=== PATIENT | male | born 1990 | race American Indian/Alaskan Native ===

== ENCOUNTER 2019-07-11 16:31 | Emergency (ER) | payer SELFPAY ==
[2019-07-11 17:11] LABS: Basophils % (Auto) 0.2 % (0.0-1.8); Eosinophils % (Auto) 0.1 % (0.0-4.3); Hematocrit 45.7 % (35.5-45.6); Hemoglobin 15.2 gm/dl (11.8-15.2); Lymphocytes # (Auto) 1.3 K/mm3 (1.2-5.4); Lymphocytes % (Auto) 16.4 % (13.4-35.0); Mean Corpuscular HGB Conc 33 % (32-34); Mean Corpuscular Volume 98 fl (84-94); Monocytes # (Auto) 0.8 K/mm3 (0.0-0.8); Monocytes % (Auto) 10.2 % (0.0-7.3); Platelet Count 224 K/mm3 (140-440); Red Blood Count 4.65 M/mm3 (3.65-5.03)
[2019-07-11 17:19] LABS: BUN/Creatinine Ratio 11; Blood Urea Nitrogen 13 mg/dL (9-20); Hemolysis Index 16
--- NOTE | 2019-07-11 17:53 | Cat Scan Report ---
CT head/brain wo con INDICATION: head injury from seizure. TECHNIQUE: Routine CT head without contrast. All CT scans at this location are performed using CT dose reduction for ALARA by means of automated exposure control. COMPARISON: None. FINDINGS: BRAIN / INTRACRANIAL CONTENTS: No acute hemorrhage, brain edema, mass effect, or hydrocephalus. Comfort l hampton-white differentiation. No chronic infarct or focal atrophy. Normal brain volume and ventricula r/sulcal size for age. CALVARIUM/SKULL BASE/CRANIOCERVICAL JUNCTION: No evidence of fracture. ORBITS: No significant abnormality of visualized orbits. SINUSES / MASTOIDS: No significant abnormality of visualized sinuses and mastoid air cells. ADDITIONAL FINDINGS: None. IMPRESSION: 1. No acute post-traumatic intracranial abnormality. Signer Name: Kirby Quick MD Signed: 07/11/2019 5:48 PM Workstation Name: [id number]
[2019-07-11] MEDS ORDERED: DILANTIN 1,000 MG in NACL 0.9% 250ML 250 ML IV ONE (17:57)
[2019-07-11] MEDS ORDERED: BOOSTRIX IM ONE (18:00)
--- NOTE | 2019-07-11 18:44 | Emergency Department Report ---
ED Seizure HPI - General Chief Complaint: Seizure Stated Complaint: CONVULSIONS Time Seen by Provider: 07/11/19 16:43 Source: patient Mode of arrival: Ambulatory Limitations: No Limitations - History of Present Illness Initial Comments: Mr. Olivas this 28-year-old -Turkmen male with a history of seizures , seizures easily controlled with Dilantin by mouth 3 times a day, patient states she's been out of medication for the last month. States he had a seizure today remembers event October seizure striking his head on the floor causing a small laceration of left eyebro. , Family member called EMS who brought patient to ED for evaluation and treatment. Patient denies or at this time complains of 4/10 headache, denies neck pain denies other complaints, denies substance. States Seizure was witnessed by family member. There is a small laceration left eyebrow and small hematoma. Complaint: seizure Onset/Timin -: hour(s) Duration of Episode: 30 -: second(s) Witnessed:: Yes Trauma: Yes (left eyebrow laceration ) Seizure History: known seizure disorder Place: home Possible Precipitating Event: none Associated Symptoms: denies other symptoms Treatments Prior to Arrival: none - Related Data Previous Rx's Medication Instructions Recorded Last Taken Type Acetaminophen [Tylenol] 650 mg PO Q6H PRN #30 capsule 07/11/19 Unknown Rx Phenytoin [Dilantin] 100 mg PO Q8HR #90 capsule 07/11/19 Unknown Rx Allergies Allergy/AdvReac Type Severity Reaction Status Date / Time No Known Allergies Allergy Verified 07/11/19 16:53 ED Review of Systems ROS: Stated complaint: CONVULSIONS Other details as noted in HPI Constitutional: denies: chills, fever Eyes: denies: eye pain, eye discharge, vision change ENT: denies: ear pain, throat pain Respiratory: denies: cough, shortness of breath, wheezing Cardiovascular: denies: chest pain, palpitations Endocrine: no symptoms reported Gastrointestinal: denies: abdominal pain, nausea, diarrhea Genitourinary: denies: urgency, dysuria Musculoskeletal: denies: back pain, joint swelling, arthralgia Skin: other (left eyebrow laceration ). denies: rash, lesions Neurological: headache. denies: numbness, paresthesias, confusion Psychiatric: denies: anxiety, depression Hematological/Lymphatic: denies: easy bleeding, easy bruising ED Past Medical Hx - Past Medical History Previous Medical History?: Yes Hx Seizures: Yes - Surgical History Past Surgical History?: No - Social History Smoking Status: Never Smoker Substance Use Type: None - Medications Home Medications: Home Medications Medication Instructions Recorded Confirmed Last Taken Type Acetaminophen [Tylenol] 650 mg PO Q6H PRN #30 capsule 07/11/19 Unknown Rx Phenytoin [Dilantin] 100 mg PO Q8HR #90 capsule 07/11/19 Unknown Rx ED Physical Exam - General Limitations: No Limitations General appearance: alert, in no apparent distress - Head Head exam: Present: normocephalic, normal inspection - Expanded Head Exam Expanded Head exam: Present: laceration (left eyebrow), hematoma. Absent: racoon eyes, evans's sign, general tenderness, tenderness of temporal artery, CSF rhinorrhea, CSF otorrhea - Eye Eye exam: Present: normal appearance, PERRL, EOMI, periorbital swelling, periorbital tenderness. Absent: nystagmus Pupils: Present: normal accommodation - ENT ENT exam: Present: mucous membranes moist - Neck Neck exam: Present: normal inspection, full ROM. Absent: tenderness, meningismus, lymphadenopathy, thyromegaly - Expanded Neck Exam Expanded Neck exam: Absent: tenderness, midline deformity, anterior neck swelling, thyroid mass, carotid bruit, tracheal deviation - Respiratory Respiratory exam: Present: normal lung sounds bilaterally. Absent: respiratory distress, wheezes, stridor, chest wall tenderness - Cardiovascular Cardiovascular Exam: Present: regular rate, normal rhythm, normal heart sounds. Absent: systolic murmur, diastolic murmur, rubs, gallop - GI/Abdominal GI/Abdominal exam: Present: soft, normal bowel sounds. Absent: distended, tenderness, bruit, hernia - Rectal Rectal exam: Present: deferred - Extremities Exam Extremities exam: Present: normal inspection, full ROM, normal capillary refill. Absent: tenderness - Back Exam Back exam: Present: normal inspection, full ROM. Absent: tenderness, vertebral tenderness, rash noted - Neurological Exam Neurological exam: Present: alert, oriented X3, CN II-XII intact, normal gait, reflexes normal. Absent: motor sensory deficit - Expanded Neurological Exam Expanded Neurological exam: Absent: ataxia Patient oriented to: Present: person, place, time Speech: Present: fluid speech Cranial nerves: EOM's Intact: Normal, Gag Reflex: Normal, Tongue Deviation: No rmal, Nystagmus: Normal, Facial Sensation: Normal Upper motor neuron: Ace Neglect: Normal, Pronator Drift: Normal Motor strength exam: RUE: 5, LUE: 5, RLE: 5, LLE: 5 Best Eye Response (Qi): (4) open spontaneously Best Motor Response (Spade): (6) obeys commands Best Verbal Response (Spade): (5) oriented Qi Total: 15 - Psychiatric Psychiatric exam: Present: normal affect, normal mood - Skin Skin exam: Present: warm, dry, intact, normal color. Absent: rash ED Course Vital Signs 07/11/19 16:54 Temperature 98.3 F Pulse Rate 92 H Respiratory 16 Rate Blood Pressure 122/77 O2 Sat by Pulse 96 Oximetry - Laceration /Wound Repair Left Face Wound Location: face (left eyebrow) Wound Length (cm): 1 (less than 1 cm ) Wound's Depth, Shape: superficial Wound Explored: clean Irrigated w/ Saline (ccs): 10 Betadine Prep?: Yes Wound Debrided: none required Wound Repaired With: Dermabond Progress: left eyebrow laceration superfical less than 1 cm, wound cleaned with betadine solution, irrigated with 10 sterile saline, closed with dermabond, all bleeding controlled pt tolerated procedure with minimal distress, given wound care instructions. Pt verbalized agreement and understanding of same. ED Medical Decision Making - Lab Data Result diagrams: 07/11/19 16:48 07/11/19 16:48 - EKG Data EKG shows normal: sinus rhythm, axis, intervals, QRS complexes Rate: normal - EKG Data Interpretation: normal EKG (ekg interp by ED attending NSR no specific twave abnormalities, no ST Elevated VA, ), nonspecific ST-T wave karen - Radiology Data Radiology results: report reviewed, image reviewed ct head normal no bleed, no mass, no abnormallities. - Medical Decision Making pt is currently a/o x 3 ambulatory with steady gait, ct normal, pt loaded with dilantin iv: 1gm, po 300, will rx dilantin as previous rx.: po tid, pt will follow up with pcp in 2-3 days, continue to hydrate, follow up with neurology at [place] as previously tx, pt verbalized agreement and understanding of discharge plan. pt dc'd home via pov and famiily member. pt in stable condition at this time. Critical care attestation.: If time is entered above; I have spent that time in minutes in the direct care of this critically ill patient, excluding procedure time. ED Disposition Clinical Impression: Seizure Disposition: DC-01 TO HOME OR SELFCARE Is pt being admited?: No Does the pt Need Aspirin: No Condition: Stable Instructions: Recurrent Seizures Adult (ED), Laceration (ED), Skin Adhesive Care (ED), Phenytoin (By mouth) Prescriptions: Phenytoin [Dilantin] 100 mg PO Q8HR #90 capsule Acetaminophen [Tylenol] 650 mg PO Q6H PRN #30 capsule PRN Reason: pain Referrals: PRIMARY MD DIANA [Primary Care Provider] - 3-5 Days [facility] [Outside] - 3-5 Days DONAL NUNEZ MD [Referring] - 3-5 Days Forms: Work/School Release Form(ED) Time of Disposition: 20:11
[2019-07-11] MEDS ORDERED: DILANTIN PO ONE (19:28)
[2019-07-11 20:50] LABS: Bilirubin,Urine NEG (Negative); Blood,Urine NEG (Negative); Color,Urine Yellow (Yellow); Hyaline Casts,Urine 1 /LPF; Mucus,Urine FEW /HPF; Protein,Urine <15 mg/dL mg/dL (Negative); Urobilinogen,Urine < 2.0 mg/dL (<2.0)
[2019-07-11 22:19] VITALS: BP 115/65
== END 2019-07-11 20:36 | disposition home or self-care (01) ==
LOC: ED 16:31
DX: S01.112A Laceration without foreign body of left eyelid and periocular area, initial encounter (principal); G40.909 Epilepsy, unspecified, not intractable, without status epilepticus; Z79.899 Other long term (current) drug therapy; W26.8XXA Contact with other sharp object(s), not elsewhere classified, initial encounter; Y93.89 Activity, other specified; Y92.89 Other specified places as the place of occurrence of the external cause; Y99.8 Other external cause status
CPT/HCPCS: 12011; 36415; 70450; 80048; 80164; 81001; 82962; 83735; 84484; 85025; 90471; 90715; 93005; 93010; 96365; 99285; J1165; J7050